=== PATIENT | female | born 1995 | race Caucasian/White ===

== ENCOUNTER 2017-05-09 09:41 | Inpatient (IN) | payer OTHER ==
[~2017-05-09] VITALS: Ht 157.5 cm; Wt 72.7 kg
[2017-05-09] VITALS (10 sets, daily range): BP systolic 116–139; BP diastolic 60–72
[~2017-05-09 09:41] MED LIST: ADVAIR 100/501 DISK; FEOSOL325 MG PO; IBUPROFEN800 MG PO; MORPHINE SULFAT15 M1 PO; MOTRIN600 MG PO; MOTRIN800 MG PO; NAPROSYN500 MG PO; NORCO 5/3251 TABLET PO; PRENATAL TABLE1 EAC3 PO; SOMA250 MG PO; VALIUM5 MG PO; VENTOLIN HFA18 GM IH; ZITHROMAX Z-PA250 MG PO; ZOFRAN4 MG PO
[2017-05-09 10:50] LABS: EOSINOPHIL (%) 0.2 % (0-5); IMMATURE GRANULOCYTE (%) 0.5 % (0.0-0.7); IMMATURE GRANULOCYTE COUNT 0.1 K/uL; LYMPHOCYTE COUNT 1.5 K/uL (1.0-2.8); MCH 28.8 PG (29.0-34.0); MCHC 33.2 G/DL (30.0-36.0); MCV 86.5 FL (83-99); MEAN PLAT.VOLUME 11.4 uM^3 (9.5-12.4); MONOCYTE COUNT 0.7 K/uL (0-0.8); NEUTROPHIL (%) 80.9 % (45-76); PLATELET COUNT 166 K/uL (156-360); RBC DIS.WIDTH-CV 12.4 % (11.8-14.6); RBC DIS.WIDTH-SD 39.1 % (39-53); RED BLOOD COUNT 3.93 M/uL (3.80-5.20); WHITE BLOOD COUNT 12.3 K/uL (4.1-10.2)
[2017-05-09 11:06] LABS: AMPHETAMINE NEGATIVE (500 ng/mL); BARBITURATES NEGATIVE (200 ng/mL); BENZODIAZEPINES NEGATIVE (150 ng/mL); COCAINE NEGATIVE (150 ng/mL); INTERNAL CONTROLS VALID? YES; METHADONE NEGATIVE (200 ng/mL); METHAMPHETAMINE NEGATIVE (500 ng/mL); OPIATES (MORPHINE) NEGATIVE (100 ng/mL); OXYCODONE NEGATIVE (100 ng/mL); PHENCYCLIDINE NEGATIVE (25 ng/mL); PROPOXYPHENE NEGATIVE (300 ng/mL); THC CANNABINOIDS NEGATIVE (50 ng/mL); TRICYCLIC ANTIDEPRESSANTS NEGATIVE (300 ng/mL)
[2017-05-10 07:47] LABS: EOSINOPHIL (%) 0.4 % (0-5); EOSINOPHIL COUNT 0.1 K/uL (0-0.3); HEMATOCRIT 30.8 % (36.0-46.0); IMMATURE GRANULOCYTE (%) 0.6 % (0.0-0.7); IMMATURE GRANULOCYTE COUNT 0.1 K/uL; INSTRUMENT ABS NEUTROPHIL CT 9.3 K/uL; LYMPHOCYTE COUNT 2.3 K/uL (1.0-2.8); MCH 28.8 PG (29.0-34.0); MCHC 32.8 G/DL (30.0-36.0); MCV 87.7 FL (83-99); MEAN PLAT.VOLUME 11.7 uM^3 (9.5-12.4); MONOCYTE (%) 6.7 % (3-12); MONOCYTE COUNT 0.8 K/uL (0-0.8); NEUTROPHIL (%) 73.6 % (45-76); NEUTROPHIL COUNT 9.3 K/uL (1.8-6.4); PLATELET COUNT 152 K/uL (156-360); RBC DIS.WIDTH-CV 12.8 % (11.8-14.6); RBC DIS.WIDTH-SD 40.6 % (39-53); RED BLOOD COUNT 3.51 M/uL (3.80-5.20); WHITE BLOOD COUNT 12.6 K/uL (4.1-10.2)
[2017-05-10] MEDS ORDERED: IBUPROFEN800 MG PO (18:26)
== END 2017-05-10 19:25 | disposition home or self-care (01) | DRG 775 ==
LOC: LDRP-OP → 2WEST 09:42 → LDRP-OP 05-11 08:34
PROVIDERS: Advanced Practice Midwife
PROC: 10E0XZZ Delivery of Products of Conception, External Approach (ICD-10-PCS; principal; 2017-05-09)
DX: O69.81X0 Labor and delivery complicated by cord around neck, without compression, not applicable or unspecified (principal); O99.323 Drug use complicating pregnancy, third trimester; F11.90 Opioid use, unspecified, uncomplicated; Z3A.40 40 weeks gestation of pregnancy; Z37.0 Single live birth; O99.343 Other mental disorders complicating pregnancy, third trimester; F32.9 Major depressive disorder, single episode, unspecified; O99.52 Diseases of the respiratory system complicating childbirth; J45.909 Unspecified asthma, uncomplicated; Z87.891 Personal history of nicotine dependence; E66.3 Overweight
CPT/HCPCS: 85025

== ENCOUNTER 2017-12-28 18:19 | Emergency (ER) | payer OTHER ==
[~2017-12-28] VITALS: Ht 157.5 cm; Wt 61.0 kg
[2017-12-29 00:48] VITALS: BP 119/70
== END 2017-12-29 00:50 | disposition home or self-care (01) ==
LOC: EME 18:19
DX: O99.612 Diseases of the digestive system complicating pregnancy, second trimester (principal); K42.9 Umbilical hernia without obstruction or gangrene; Z3A.20 20 weeks gestation of pregnancy; O99.512 Diseases of the respiratory system complicating pregnancy, second trimester; J45.909 Unspecified asthma, uncomplicated; Z87.891 Personal history of nicotine dependence
CPT/HCPCS: 76705; 99281; 99284

== ENCOUNTER 2018-05-17 03:47 | Inpatient (IN) | payer OTHER ==
[~2018-05-17] VITALS: Ht 157.5 cm; Wt 69.4 kg
[2018-05-17] VITALS (10 sets, daily range): BP systolic 121–138; BP diastolic 67–89
[2018-05-17] MEDS ORDERED: ZOLOFT25 MG PO (04:24)
[2018-05-17] MEDS ORDERED: PRENATAL TABLE1 EAC3 PO (04:24)
[2018-05-17 04:59] LABS: AMPHETAMINE NEGATIVE (500 ng/mL); BARBITURATES NEGATIVE (200 ng/mL); BENZODIAZEPINES NEGATIVE (150 ng/mL); BUPRENORPHINE NEGATIVE (10 ng/mL); COCAINE NEGATIVE (150 ng/mL); METHADONE NEGATIVE (200 ng/mL); METHAMPHETAMINE NEGATIVE (500 ng/mL); OPIATES (MORPHINE) NEGATIVE (100 ng/mL); OXYCODONE NEGATIVE (100 ng/mL); PHENCYCLIDINE NEGATIVE (25 ng/mL); PROPOXYPHENE NEGATIVE (300 ng/mL); THC CANNABINOIDS NEGATIVE (50 ng/mL); TRICYCLIC ANTIDEPRESSANTS NEGATIVE (300 ng/mL)
[2018-05-17 05:42] LABS: BASOPHIL (%) 0.3 % (0-1); EOSINOPHIL (%) 0.8 % (0-5); EOSINOPHIL COUNT 0.1 K/uL (0-0.3); HEMATOCRIT 26.2 % (36.0-46.0); HEMOGLOBIN 8.9 G/DL (11.9-15.5); IMMATURE GRANULOCYTE (%) 0.5 % (0.0-0.7); LYMPHOCYTE (%) 29.2 % (15-42); LYMPHOCYTE COUNT 2.5 K/uL (1.0-2.8); MCH 28.7 PG (29.0-34.0); MCV 84.5 FL (83-99); MONOCYTE (%) 7.2 % (3-12); MONOCYTE COUNT 0.6 K/uL (0-0.8); NEUTROPHIL COUNT 5.4 K/uL (1.8-6.4); PLATELET COUNT 245 K/uL (156-360); RBC DIS.WIDTH-CV 12.1 % (11.8-14.6); RBC DIS.WIDTH-SD 36.7 % (39-53); WHITE BLOOD COUNT 8.7 K/uL (4.1-10.2)
[2018-05-18 07:35] VITALS: BP 135/82
[2018-05-18 08:21] LABS: BASOPHIL (%) 0.4 % (0-1); EOSINOPHIL (%) 1.2 % (0-5); EOSINOPHIL COUNT 0.1 K/uL (0-0.3); HEMATOCRIT 33.1 % (36.0-46.0); HEMOGLOBIN 10.9 G/DL (11.9-15.5); IMMATURE GRANULOCYTE (%) 0.6 % (0.0-0.7); LYMPHOCYTE (%) 26.4 % (15-42); LYMPHOCYTE COUNT 1.8 K/uL (1.0-2.8); MCH 28.2 PG (29.0-34.0); MCHC 32.9 G/DL (30.0-36.0); MCV 85.8 FL (83-99); MONOCYTE (%) 6.9 % (3-12); MONOCYTE COUNT 0.5 K/uL (0-0.8); NEUTROPHIL (%) 64.5 % (45-76); NEUTROPHIL COUNT 4.4 K/uL (1.8-6.4); RBC DIS.WIDTH-CV 12.4 % (11.8-14.6); RBC DIS.WIDTH-SD 38.3 % (39-53); RED BLOOD COUNT 3.86 M/uL (3.80-5.20); WHITE BLOOD COUNT 6.8 K/uL (4.1-10.2)
[2018-05-18 08:38] LABS: PLAT.SUFFICIENCY DECREASED
[2018-05-18 09:06] LABS: PLATELET COUNT 158 K/uL (156-360)
[2018-05-18 16:20] VITALS: BP 138/85
[2018-05-18] MEDS ORDERED: Tylenol Extra Streng PO (17:57)
[2018-05-18] MEDS ORDERED: IBUPROFEN800 MG PO (17:58)
== END 2018-05-18 18:40 | disposition home or self-care (01) | DRG 775 ==
LOC: LDRP-OP 03:47 → 2WEST 03:48 → LDRP-OP 06-29 16:12
PROVIDERS: Advanced Practice Midwife
PROC: 10E0XZZ Delivery of Products of Conception, External Approach (ICD-10-PCS; principal; 2018-05-17)
DX: O99.344 Other mental disorders complicating childbirth (principal); O62.3 Precipitate labor; O99.52 Diseases of the respiratory system complicating childbirth; Z3A.39 39 weeks gestation of pregnancy; Z37.0 Single live birth; J45.909 Unspecified asthma, uncomplicated; F32.9 Major depressive disorder, single episode, unspecified; F41.0 Panic disorder [episodic paroxysmal anxiety]; Z87.891 Personal history of nicotine dependence
CPT/HCPCS: 85025; J1050; J7120